=== PATIENT | female | born 1950 | race Caucasian/White ===

== ENCOUNTER 2016-08-02 16:00 | Emergency (ER) | payer MEDICARE ==
--- NOTE | 2016-08-02 16:31 | Emergency Department Record ---
History of Present Illness - General Chief Complaint: Difficulty Breathing Stated Complaint: CHERRY Time Seen by Provider: 08/02/16 16:30 Source: Patient Mode of Arrival: Ambulatory Limitations: No limitations - History of Present Illness Initial Comments: The patient is here due to a 3 week hx of CHERRY and DE OLIVEIRA. The symptoms have been getting progressively worse over the last few days. She denies any CP, sweating or nausea but the symptoms are worse with exertion. She does have a hx of Afib and is on Cardizem and Eliquis. MD Complaint: Shortness of breath Onset/Timin -: Week(s) Improves With: Nothing Worsens With: Exertion Treatments Prior to Arrival: None - Related Data Home Oxygen Therapy: No Home Medications Medication Instructions Recorded Confirmed Last Taken Apixaban [Eliquis] 5 mg PO BID 08/02/16 08/02/16 08/02/16 Diltiazem HCl [Diltiazem 12Hr ER] 120 mg PO DAILY 08/02/16 08/02/16 08/02/16 Fluticasone/Salmeterol [Advair 1 puff INH BID 08/02/16 08/02/16 08/02/16 250-50 Diskus] Hydrochlorothiazide [Hctz 25Mg] 25 mg PO DAILY 08/02/16 08/02/16 08/02/16 Lisinopril [Zestril] 40 mg PO DAILY 08/02/16 08/02/16 08/02/16 Pravastatin Sodium [Pravachol] 20 mg PO DAILY 08/02/16 08/02/16 08/02/16 Allergies Allergy/AdvReac Type Severity Reaction Status Date / Time No Known Drug Allergies Allergy Verified 08/02/16 16:04 Travel Screening - Travel/Exposure Within Last 30 Days Have you traveled within the last 30 days?: No - Travel/Exposure Within Last Year Have you traveled outside the [place] in the last year?: No - Additonal Travel Details Have you been exposed to anyone with a communicable illness?: No - Travel Symptoms Symptom Screening: None Review of Systems Constitutional: Denies: Chills, Fever Eyes: Denies: Eye discharge ENT: Denies: Congestion Respiratory: Reports: Dyspnea. Denies: Cough Cardiovascular: Reports: Dyspnea on exertion. Denies: Arrhythmia, Chest pain Endocrine: Denies: Fatigue Gastrointestinal: Denies: Abdominal pain Genitourinary: Denies: Dysuria Musculoskeletal: Denies: Back pain Skin: Denies: Bruising Past Medical History - SOCIAL HISTORY Smoking Status: Current every day smoker Alcohol Use: None Drug Use: None - RESPIRATORY Hx Respiratory Disorders: Yes Hx COPD: Yes - CARDIOVASCULAR Hx Cardio Disorders: Yes Hx Hypertension: Yes Hx Irregular Heartbeat: Yes (A Fib) - NEURO Hx Neuro Disorders: No - GI Hx GI Disorders: No - Hx Genitourinary Disorders: No - ENDOCRINE Hx Endocrine Disorders: No - MUSCULOSKELETAL Hx Musculoskeletal Disorders: No - PSYCH Hx Psych Problems: No - HEMATOLOGY/ONCOLOGY Hx Hematology/Oncology Disorders: No Family Medical History Any Significant Family History?: Yes Hx Alcohol Use: Father Hx Cancer: Mother Hx Heart Disease: Father Hx Liver Disease: Father Physical Exam - General General Appearance: Alert, Oriented x3, Cooperative, No acute distress - Head Head exam: Atraumatic, Normocephalic, Normal inspection - Eye Eye exam: Normal appearance, PERRL - ENT Throat exam: Normal inspection. negative: Tonsillar erythema, Tonsillar exudate - Neck Neck exam: Normal inspection, Full ROM. negative: Tenderness - Respiratory Respiratory exam: Decreased breath sounds. negative: Normal lung sounds bilaterally, Respiratory distress - Cardiovascular Cardiovascular Exam: Irregular rhythm, Tachycardia. negative: Regular rate, Normal rhythm - GI/Abdominal GI/Abdominal exam: Soft, Normal bowel sounds. negative: Tenderness - Extremities Extremities exam: Normal inspection, Full ROM, Normal capillary refill. negative: Tenderness - Neurological Neurological exam: Normal gait. negative: Abnormal gait Course Vital Signs 08/02/16 08/02/16 16:04 16:12 Temperature 99 F 99 F Pulse Rate 128 H 52 L Respiratory 28 H 28 H Rate Blood Pressure 134/101 134/101 Pulse Ox 93 L 93 L - Reevaluation(s) Reevaluation #1: The patient is doing much better at this time. She is breathing much better and her HR is 80-90 and controlled on the Cardizem. I did discuss the issues with the patient and did recommend transfer. The patient would like to go to [facility] due to having seen Dr. Alexis in the past. 08/02/16 18:22 Reevaluation #2: I did discuss the case with Dr. Castellanos for I and he does accept the patient for transfer to [facility]. 08/02/16 18:30 Medical Decision Making - Data Complexity MDM Data: Labs Ordered and/or Reviewed, X-Ray Ordered and/or Reviewed, EKG Ordered and/or Reviewed - Lab Data Result diagrams: 08/02/16 16:45 08/02/16 16:45 - EKG Data -: EKG Interpreted by Me (Afib at 120 with LBBB.) - Radiology Data Radiology results: Report reviewed (CXR: CMG with no specific CHF.) Disposition Disposition: Transfer Clinical Impression: Rapid atrial fibrillation Disposition: Acute Care Hospital Transfer Transfer To: [facility] Reason For Transfer: Afib and CHF Accepting Physician: Voice Time Discussed w/Accepting Physician: 18:31 Condition: (2) Stable Forms: Patient Portal Access Time of Disposition: 18:31
[2016-08-02 16:56] LABS: BASO % 0.2 % (0-6); EOS % 0.3 % (0-6); GRAN % 78.2 % (47-80); HEMATOCRIT 44.7 % (35.0-47.0); HEMOGLOBIN 14.4 gm/dl (11.6-16.0); LYMPH % 12.8 % (16-45); MEAN CELL VOLUME 92.9 fl (81-97); MEAN CORPUSCULAR HEMOGLOBIN 29.9 pg (27-33); MEAN CORPUSCULAR HGB CONC 32.2 g/dl (32-36); MEAN PLATELET VOLUME 10.7 fl (7.4-10.4); MONO % 8.5 % (0-9); PLATELET COUNT 188 K/uL (130-400); RED BLOOD COUNT 4.81 M/uL (3.80-5.40); RED CELL DISTRIBUTION WIDTH 13.3 % (11.5-14.5); WHITE BLOOD COUNT W/O DIFF 8.7 K/uL (4.2-12.2)
[2016-08-02] MEDS ORDERED: DILTIAZEM 25MG/5ML VIAL IV ONE (17:06)
[2016-08-02 17:09] LABS: INR 1.03; PARTIAL THROMBOPLASTIN TIME 27.8 SECONDS (24.5-39.1); PROTHROMBIN TIME (PATIENT) 11.6 SECONDS (9.5-12.1)
[2016-08-02] MEDS ORDERED: DILTIAZEM HCL 125 MG in 0.9 % SODIUM CHLORIDE 100ML 100 ML IV SCH (17:15)
[2016-08-02 17:41] LABS: ANION GAP 9.2 (7-16); BLOOD UREA NITROGEN 13 mg/dL (7-17); CARBON DIOXIDE 30.8 mmol/L (22-30); CREATINE PHOSPHOKINASE 66 U/L (30-135); CREATININE 0.8 mg/dL (0.52-1.04); EST GLOMERULAR FILTRATION RATE > 60 ml/min; GLUCOSE,RANDOM 120 mg/dL (70-110)
[2016-08-02 17:52] LABS: CKMB 2.4 ug/L (0-6); TROPONIN I 0.013 ng/mL (0.00-0.034)
[2016-08-02] MEDS ORDERED: FUROSEMIDE IV 40MG/4ML VIAL IVP ONE (18:14)
== END 2016-08-02 20:16 | disposition short-term general hospital (02) ==
LOC: ER 16:00
DX: I48.91 Unspecified atrial fibrillation (principal); I10 Essential (primary) hypertension; J44.9 Chronic obstructive pulmonary disease, unspecified; F17.210 Nicotine dependence, cigarettes, uncomplicated; Z79.01 Long term (current) use of anticoagulants
CPT/HCPCS: 71010; 80048; 82550; 82553; 83880; 84443; 84484; 85025; 85610; 85730; 93005; 93010; 96365; 96366; 96375; 99285; J1940

== ENCOUNTER 2016-08-08 07:43 | Emergency (ER) | payer MEDICARE ==
--- NOTE | 2016-08-08 08:11 | Emergency Department Record ---
History of Present Illness - General Chief Complaint: Difficulty Breathing Stated Complaint: CHERRY WHEN SLEEPING Time Seen by Provider: 08/08/16 08:10 Source: Patient Mode of Arrival: Ambulatory Limitations: No limitations - History of Present Illness Initial Comments: The patient is here due to a one week hx of SOB when she tries to go to sleep. She was recently in the ER last week and diagnosed with New onset Rapid A fib with CHF. She was transferred to [facility] on the Cardiology service and was discharged 3 days ago. The patient states her symptoms of SOB when she tries to sleep has not resolved and is no better now than prior to her hospital admission. She denies any CP, back pain, cough, or fever but does have mild DE OLIVEIRA. MD Complaint: Shortness of breath Onset/Timin -: Days(s) Severity: Mild Severity scale (1-10): 1 Quality: Aching Consistency: Constant Improves With: Nothing Worsens With: Nothing Known History Of: COPD - Related Data Home Oxygen Therapy: No Home Medications Medication Instructions Recorded Confirmed Last Taken Apixaban [Eliquis] 5 mg PO BID 08/02/16 08/08/16 1 Day Ago Fluticasone/Salmeterol [Advair 1 puff INH BID 08/02/16 08/08/16 1 Day Ago 250-50 Diskus] Hydrochlorothiazide [Hctz 25Mg] 25 mg PO DAILY 08/02/16 08/08/16 1 Day Ago Lisinopril [Zestril] 40 mg PO DAILY 08/02/16 08/08/16 1 Day Ago Pravastatin Sodium [Pravachol] 20 mg PO DAILY 08/02/16 08/08/16 1 Day Ago Metoprolol Tartrate [Lopressor] 50 mg PO DAILY 08/08/16 08/08/16 1 Day Ago Allergies Allergy/AdvReac Type Severity Reaction Status Date / Time No Known Drug Allergies Allergy Verified 08/08/16 08:05 Travel Screening - Travel/Exposure Within Last 30 Days Have you traveled within the last 30 days?: No - Travel/Exposure Within Last Year Have you traveled outside the [place] in the last year?: No - Additonal Travel Details Have you been exposed to anyone with a communicable illness?: No - Travel Symptoms Symptom Screening: None Review of Systems Constitutional: Denies: Chills, Fever Eyes: Denies: Eye discharge ENT: Denies: Congestion Respiratory: Denies: Cough, Dyspnea Past Medical History - SOCIAL HISTORY Smoking Status: Current every day smoker Alcohol Use: None Drug Use: None - RESPIRATORY Hx Respiratory Disorders: Yes Hx COPD: Yes - CARDIOVASCULAR Hx Cardio Disorders: Yes Hx Hypertension: Yes Hx Irregular Heartbeat: Yes (A Fib) Comment:: recent cardiac admission at [facility] - NEURO Hx Neuro Disorders: No - GI Hx GI Disorders: No - Hx Genitourinary Disorders: No - ENDOCRINE Hx Endocrine Disorders: No - MUSCULOSKELETAL Hx Musculoskeletal Disorders: No - PSYCH Hx Psych Problems: No - HEMATOLOGY/ONCOLOGY Hx Hematology/Oncology Disorders: No Family Medical History Any Significant Family History?: Yes Hx Alcohol Use: Father Hx Cancer: Mother Hx Heart Disease: Father Hx Liver Disease: Father Physical Exam - General General Appearance: Alert, Oriented x3, Cooperative, No acute distress - Head Head exam: Atraumatic, Normocephalic, Normal inspection - Eye Eye exam: Normal appearance, PERRL - ENT Throat exam: Normal inspection. negative: Tonsillar erythema, Tonsillar exudate - Neck Neck exam: Normal inspection, Full ROM. negative: Tenderness - Respiratory Respiratory exam: Normal lung sounds bilaterally. negative: Respiratory distress - Cardiovascular Cardiovascular Exam: Irregular rhythm. negative: Regular rate, Normal rhythm, Diastolic murmur, Systolic murmur, Tachycardia - GI/Abdominal GI/Abdominal exam: Soft, Normal bowel sounds. negative: Tenderness - Extremities Extremities exam: Normal inspection, Full ROM, Normal capillary refill. negative: Tenderness - Back Back exam: Reports: Normal inspection - Neurological Neurological exam: Normal gait. negative: Abnormal gait, Motor sensory deficit - Psychiatric Psychiatric exam: negative: Agitated, Anxious Course Vital Signs 08/08/16 07:53 Temperature 97.5 F L Pulse Rate 97 H Respiratory 18 Rate Blood Pressure 163/115 Pulse Ox 97 - Reevaluation(s) Reevaluation #1: The patient is doing well at this time. She denies any new issues. I did explain to her that her lab tests are a little worrisome and that it appears she may need further cardiac testing. I then did discuss the case with Dr. Lal who is salesperson driver at [facility] where the patient recently was discharged from. He agrees with the plan and does accept her for admission. 08/08/16 10:16 Medical Decision Making - Data Complexity MDM Data: Labs Ordered and/or Reviewed, X-Ray Ordered and/or Reviewed, EKG Ordered and/or Reviewed - Lab Data Result diagrams: 08/08/16 08:45 08/08/16 08:45 - EKG Data -: EKG Interpreted by Me EKG: No Acute Changes, Unchanged From Previous - Radiology Data Radiology results: Report reviewed (CXR: No acute changes. Poss Mild CHF.) Disposition Disposition: Transfer Clinical Impression: Rapid atrial fibrillation Disposition: Acute Care [facility]: Cardiology Accepting Physician: Lukasz Time Discussed w/Accepting Physician: 10:17 Condition: (2) Stable Forms: Patient Portal Access Time of Disposition: 10:17
[2016-08-08 08:56] LABS: BASO % 0.3 % (0-6); EOS % 0.7 % (0-6); GRAN % 76.4 % (47-80); HEMATOCRIT 47.9 % (35.0-47.0); HEMOGLOBIN 15.5 gm/dl (11.6-16.0); LYMPH % 13.8 % (16-45); MEAN CELL VOLUME 91.8 fl (81-97); MEAN CORPUSCULAR HEMOGLOBIN 29.7 pg (27-33); MEAN CORPUSCULAR HGB CONC 32.4 g/dl (32-36); MEAN PLATELET VOLUME 10.7 fl (7.4-10.4); MONO % 8.8 % (0-9); PLATELET COUNT 218 K/uL (130-400); RED BLOOD COUNT 5.22 M/uL (3.80-5.40); RED CELL DISTRIBUTION WIDTH 13.1 % (11.5-14.5); WHITE BLOOD COUNT W/O DIFF 11.3 K/uL (4.2-12.2)
[2016-08-08] MEDS ORDERED: IPRATROPIUM/ALBUTEROL (0.5MG/3MG) NEB INH ONE (09:07)
[2016-08-08 09:15] LABS: INR 1.01; PROTHROMBIN TIME (PATIENT) 11.4 SECONDS (9.5-12.1)
[2016-08-08 09:16] LABS: ANION GAP 8.1 (7-16); BLOOD UREA NITROGEN 27 mg/dL (7-17); CARBON DIOXIDE 33.9 mmol/L (22-30); CREATINE PHOSPHOKINASE 46 U/L (30-135); CREATININE 0.9 mg/dL (0.52-1.04); EST GLOMERULAR FILTRATION RATE > 60 ml/min; GLUCOSE,RANDOM 135 mg/dL (70-110)
[2016-08-08] MEDS ORDERED: POTASSIUM CHLORIDE 20 MEQ TABLET PO ONE (09:24)
[2016-08-08 09:28] LABS: CKMB 3.6 ug/L (0-6); TROPONIN I 0.058 ng/mL (0.00-0.034)
[2016-08-08] MEDS ORDERED: FUROSEMIDE IV 20MG/2ML VIAL IVP ONE (09:49)
[2016-08-08] MEDS ORDERED: FUROSEMIDE IV 40MG/4ML VIAL IVP ONE (10:04)
--- NOTE | 2016-08-11 15:53 | RADIOLOGY REPORT ---
EXAM: CHEST 2 VIEWS HISTORY: PATIENT HAS SHORTNESS OF BREATH. TECHNIQUE: Two views of the chest are provided along with a comparison study dated 08/02/2016. FINDINGS: Cardiomegaly is noted. Mild tortuosity of the thoracic aorta is noted. [place] appear unremarkable. There is no radiographic evidence of a focal consolidation or pleural effusion. Diffuse interstitial prominence may represent chronic interstitial changes versus viral versus reactive airways disease. Clinical correlation is recommended. IMPRESSION: CARDIOMEGALY IS NOTED. DIFFUSE INTERSTITIAL PROMINENCE BILATERAL IS NOTED, WHICH MAY REPRESENT VIRAL VERSUS REACTIVE AIRWAYS DISEASE VERSUS CHRONIC INTERSTITIAL CHANGES. FOLLOW-UP PA AND LATERAL VIEWS OF THE CHEST CAN BE OBTAINED IF CLINICALLY INDICATED. JOB NUMBER: [id number] MTDD
== END 2016-08-08 12:25 | disposition short-term general hospital (02) ==
LOC: ER 07:43
DX: I48.0 Paroxysmal atrial fibrillation (principal); I50.9 Heart failure, unspecified; I10 Essential (primary) hypertension; J44.9 Chronic obstructive pulmonary disease, unspecified; F17.210 Nicotine dependence, cigarettes, uncomplicated; Z79.01 Long term (current) use of anticoagulants
CPT/HCPCS: 71020; 80048; 82550; 82553; 83880; 84484; 85025; 85610; 85730; 93005; 93010; 94640; 96374; 99285; J1940